=== PATIENT | male | born 1960 | race Caucasian/White ===

== ENCOUNTER 2018-12-03 08:31 | Emergency (ER) | payer MEDICAID ==
--- NOTE | 2018-12-03 08:56 | EDM.PDOC ---
ED HPI GENERAL MEDICAL PROBLEM - General Chief Complaint: Back Pain or Injury Stated Complaint: BACK PAIN Time Seen by Provider: 12/03/18 08:44 Source of Information: Reports: Patient History Limitations: Reports: No Limitations - History of Present Illness INITIAL COMMENTS - FREE TEXT/NARRATIVE: History of present illness: []Patient has chronic back pain flareup the past 3 days radiating down his right leg. He denies any incontinence or inability to walk. Review of systems: As per history of present illness and below otherwise all systems reviewed and negative. Past medical history: As per history of present illness and as reviewed below otherwise noncontributory. Surgical history: As per history of present illness and as reviewed below otherwise noncontributory. Social history: No reported history of drug or alcohol abuse. Family history: As per history of present illness and as reviewed below otherwise noncontributory. Physical exam: General: Well developed, well nourished in NAD HEENT: Atraumatic, normocephalic, pupils reactive, negative for conjunctival pallor or scleral icterus, mucous membranes moist, throat clear, neck supple, nontender, trachea midline. Lungs: Clear to auscultation, breath sounds equal bilaterally, chest nontender. Heart: S1S2, regular, negative for clicks, rubs, or JVD. Abdomen: NABS, Soft, nondistended, nontender. Negative for masses or hepatosplenomegaly. Negative for costovertebral tenderness. Pelvis: Stable nontender. Genitourinary: Deferred. Rectal: Deferred. Extremities: Atraumatic, negative for cords or calf pain. Neurovascular unremarkable. Neuro: Awake, alert, oriented. Cranial nerves II through XII unremarkable. Cerebellum unremarkable. Motor and sensory unremarkable throughout. Exam nonfocal. Skin:warm and dry Diagnostics: None Therapeutics: Toradol IM, Flexeril ED Course: Unremarkable Impression: Chronic low back pain with acute exacerbation right-sided sciatica Prescriptions: Diclofenac, Flexeril, Medrol Dosepak Plan: Take meds as directed, follow up with your primary care physician, return to ER if symptoms worsen or change. Definitive disposition and diagnosis as appropriate pending reevaluation and review of above. Low bilateral back Pain Score (Numeric/FACES): 10 - Related Data Allergies Allergy/AdvReac Type Severity Reaction Status Date / Time No Known Allergies Allergy Verified 12/03/18 08:43 Home Meds: Home Meds Insulin Glargine,Hum.Rec.Anlog [Lantus Solostar] 10 unit SQ BID 07/10/16 [ History] Lisinopril 1 tab PO DAILY 07/10/16 [History] Pioglitazone [Actos] 1 tab PO DAILY 07/10/16 [History] glipiZIDE [Glucotrol XL] 1 tab PO DAILY 07/10/16 [History] metFORMIN HCl [Metformin HCl] 1 tab PO BID 07/10/16 [History] Cyclobenzaprine [Flexeril] 10 mg PO BID PRN #12 tab 12/03/18 [Rx] Diclofenac Sodium [Voltaren] 75 mg PO BIDMEALS PRN #20 tab.cr 12/03/18 [Rx] methylPREDNISolone [Medrol] 4 mg PO ASDIRECTED #1 dosepk 12/03/18 [Rx] Past Medical History HEENT History: Reports: Hard of Hearing Other HEENT History: Hears best on Left Cardiovascular History: Reports: Hypertension Other Respiratory History: REports long history of tobacco use, Chewing tobacco currently 1 can per day and about 2 cigarettes per day Gastrointestinal History: Reports: GERD, Hepatitis Other Gastrointestinal History: Heartburn/GERD, Positive Hepatitis C (Heroin addict in recovery 16 years) Other Neuro History: "Some Headaches" Endocrine/Metabolic History: Reports: Diabetes, Type II, Obesity/BMI 30+ - Infectious Disease History Infectious Disease History: Reports: None - Past Surgical History Musculoskeletal Surgical History: Reports: Shoulder Surgery, Other (See Below) Social & Family History - Family History Family Medical History: Noncontributory - Tobacco Use Smoking Status *Q: Current Every Day Smoker Years of Tobacco use: 19 Packs/Tins Daily: 1 - Caffeine Use Caffeine Use: Reports: Coffee, Soda - Recreational Drug Use Recreational Drug Use: No ED ROS GENERAL - Review of Systems Review Of Systems: ROS reveals no pertinent complaints other than HPI. ED EXAM,LOWER BACK PAIN/INJURY - Physical Exam Exam: See Below (See history of present illness) Course - Vital Signs Last Recorded V/S: Last Vital Signs Temp 97.0 F 12/03/18 08:44 Pulse 73 12/03/18 09:47 Resp 18 12/03/18 09:47 BP 182/110 H 12/03/18 09:47 Pulse Ox 96 12/03/18 09:47 - Orders/Labs/Meds Orders: Active Orders 24 hr Category Date Time Status Blood Glucose Check, Bedside [RC] ONETIME Care 12/03/18 09:19 Active Meds: Medications Discontinued Medications Generic Name Dose Route Start Last Admin Trade Name Simbaq PRN Reason Stop Dose Admin Cyclobenzaprine HCl 10 mg 12/03/18 09:19 12/03/18 09:25 Flexeril PO 12/03/18 09:20 10 mg ONETIME ONE Administration Ketorolac Tromethamine 60 mg 12/03/18 09:19 12/03/18 09:24 Toradol IM 12/03/18 09:20 60 mg ONETIME ONE Administration Departure - Departure Time of Disposition: 08:55 Disposition: Home, Self-Care 01 Condition: Good Clinical Impression: Chronic low back pain with right-sided sciatica Qualifiers: Back pain laterality: right Qualified Code(s): M54.41 - Lumbago with sciatica, right side - Discharge Information *PRESCRIPTION DRUG MONITORING PROGRAM REVIEWED*: No *COPY OF PRESCRIPTION DRUG MONITORING REPORT IN PATIENT HAKEEM: No Prescriptions: Cyclobenzaprine [Flexeril] 10 mg PO BID PRN #12 tab PRN Reason: Pain Diclofenac Sodium [Voltaren] 75 mg PO BIDMEALS PRN #20 tab.cr PRN Reason: Pain methylPREDNISolone [Medrol] 4 mg PO ASDIRECTED #1 dosepk Instructions: Sciatica, Back Pain, Adult, [id number] Referrals: PCP,None [Primary Care Provider] - Forms: ED Department Discharge - My Orders Last 24 Hours: My Active Orders 12/03/18 09:19 Blood Glucose Check, Bedside [RC] ONETIME - Assessment/Plan Last 24 Hours: My Active Orders 12/03/18 09:19 Blood Glucose Check, Bedside [RC] ONETIME
[2018-12-03] MEDS ORDERED: Ketorolac 60 MG/2 ML SDV IM ONE (09:19)
[2018-12-03] MEDS ORDERED: Cyclobenzaprine 10 MG Tab PO ONE (09:19)
[2018-12-03 10:15] VITALS: BP 182/110
== END 2018-12-03 09:47 | disposition home or self-care (01) ==
LOC: MW.ED 08:31
DX: M54.41 Lumbago with sciatica, right side (principal); F17.210 Nicotine dependence, cigarettes, uncomplicated; I10 Essential (primary) hypertension; Z79.4 Long term (current) use of insulin
CPT/HCPCS: 96372; 99283; A9270; J1885

== ENCOUNTER 2019-02-04 13:39 | Emergency (ER) | payer MEDICAID ==
[2019-02-04 14:00] VITALS: BP 136/100
[2019-02-04] MEDS ORDERED: Ketorolac 60 MG/2 ML SDV IM ONE (14:17)
--- NOTE | 2019-02-04 14:28 | EDM.PDOC ---
ED HPI GENERAL MEDICAL PROBLEM - General Chief Complaint: Back Pain or Injury Stated Complaint: BACK PAIN Time Seen by Provider: 02/04/19 13:46 Source of Information: Reports: Patient History Limitations: Reports: No Limitations - History of Present Illness INITIAL COMMENTS - FREE TEXT/NARRATIVE: HISTORY AND PHYSICAL: History of present illness: Patient is a 58-year-old male presents to the ED today with concern of low back pain 3 days. Patient states he does have a history of chronic low back pain and sees his primary care provider for this under usual circumstances. Patient states he had old injury many years ago which has contributed to his back pain. Patient is currently experiencing shooting down the right leg on the outside and states that this is usual for his low back pain. Patient rates his pain a 9 out of 10 and states that usually it is about a 4 out of 10. Patient states he has not taken anything for his symptoms. Patient denies any new injury or trauma to the area. Patient denies loss of bowel or bladder function or saddle anesthesia. Patient denies fever, chills, chest pain, shortness of breath, or cough. Denies headache, neck stiff ness, change in vision, syncope, or near syncope. Denies nausea, vomiting, abdominal pain, diarrhea, constipation, or dysuria. Has not noted any blood in urine or stool. Patient has been eating and drinking appropriately. Patient has a history of hypertension, type 2 diabetes, and hepatitis C. Review of systems: As per history of present illness and below otherwise all systems reviewed and negative. Past medical history: As per history of present illness and as reviewed below otherwise noncontributory. Surgical history: As per history of present illness and as reviewed below otherwise noncontributory. Social history: See social history for further information Family history: As per history of present illness and as reviewed below otherwise noncontributory. Physical exam: General: Patient is alert, oriented, and in no acute distress. Patient sitting comfortably on exam table. HEENT: Atraumatic, normocephalic, pupils equal and reactive bilaterally, negative for conjunctival pallor or scleral icterus, mucous membranes moist, TMs normal bilaterally, throat clear, neck supple, nontender, trachea midline. No drooling or trismus noted. No meningeal signs. No hot potato voice noted. Lungs: Clear to auscultation, breath sounds equal bilaterally, chest nontender. Heart: S1S2, regular rate and rhythm without overt murmur Abdomen: Soft, nondistended, nontender. Negative for masses or hepatosplenomegaly. Negative for costovertebral tenderness. Pelvis: Stable nontender. Genitourinary: Deferred. Rectal: Rectal tone intact. Skin: Intact, warm, dry. No lesions or rashes noted. Extremities/musculoskeletal: Negative for cords or calf pain. Neurovascular unremarkable. Negative pain to palpation of the complete spine and spinous process. Patient does have moderate to severe pain to palpation of the paraspinous muscles surrounding the lumbar spine on bilateral sides. Patient does vocalize a shooting sensation down the right leg with palpation of the paraspinous muscles. Limited range of motion of the lumbar spine due to pain. Patient has full range of motion of the cervical spine. Patient has full range of motion/strength of bilateral extremities. Neuro: Awake, alert, oriented. Cranial nerves II through XII unremarkable. Cerebellum unremarkable. Motor and sensory unremarkable throughout. Exam nonfocal. Notes: Dr. Gutierrez was verbally involved in patients care. Discussed the importance for follow-up with a primary care provider. Voices understanding and is agreeable to plan of care. Denies any further questions or concerns at this time. Diagnostics: Lumbar x-ray, UA Therapeutics: Toradol, Norflex Prescription: Diclofenac, Flexeril Impression: Acute on chronic low back pain Plan: 1. Rest, ice the affected area. You can apply ice or heat 15 minutes on, 15 minutes off. 2.Take medications as prescribed. You can also use Tylenol as needed for pain and discomfort. 3. Follow up with your primary care provider as discussed. Return to the ED as needed and as discussed. Definitive disposition and diagnosis as appropriate pending reevaluation and review of above. back Pain Score (Numeric/FACES): 10 - Related Data Allergies Allergy/AdvReac Type Severity Reaction Status Date / Time No Known Allergies Allergy Verified 12/03/18 08:43 Home Meds: Home Meds Lisinopril 1 tab PO DAILY 07/10/16 [History] Pioglitazone [Actos] 1 tab PO DAILY 07/10/16 [History] glipiZIDE [Glucotrol XL] 1 tab PO DAILY 07/10/16 [History] metFORMIN HCl [Metformin HCl] 1 tab PO BID 07/10/16 [History] Cyclobenzaprine [Flexeril] 10 mg PO BID PRN #10 tab 02/04/19 [Rx] Diclofenac Sodium [Voltaren] 75 mg PO BIDMEALS PRN #10 tab.cr 02/04/19 [Rx] Lisdexamfetamine Dimesylate [Vyvanse] 60 mg PO DAILY 02/04/19 [History] Sertraline [Zoloft] 100 mg PO DAILY 02/04/19 [History] glipiZIDE [Glipizide ER] 10 mg PO DAILY 02/04/19 [History] Past Medical History HEENT History: Reports: Hard of Hearing Other HEENT History: Hears best on Left Cardiovascular History: Reports: Hypertension Other Respiratory History: REports long history of tobacco use, Chewing tobacco currently 1 can per day and about 2 cigarettes per day Gastrointestinal History: Reports: GERD, Hepatitis Other Gastrointestinal History: Heartburn/GERD, Positive Hepatitis C (Heroin addict in recovery 16 years) Other Neuro History: "Some Headaches" Endocrine/Metabolic History: Reports: Diabetes, Type II, Obesity/BMI 30+ - Infectious Disease History Infectious Disease History: Reports: None - Past Surgical History Musculoskeletal Surgical History: Reports: Knee Replacement, Shoulder Surgery, Other (See Below) Social & Family History - Family History Family Medical History: Noncontributory - Tobacco Use Smoking Status *Q: Current Every Day Smoker Years of Tobacco use: 40 Packs/Tins Daily: 1 - Caffeine Use Caffeine Use: Reports: Coffee, Soda - Recreational Drug Use Recreational Drug Use: No ED ROS GENERAL - Review of Systems Review Of Systems: ROS reveals no pertinent complaints other than HPI. ED EXAM,LOWER BACK PAIN/INJURY - Physical Exam Exam: See Below (See dictation) Course - Vital Signs Last Recorded V/S: Last Vital Signs Temp 36.6 C 02/04/19 13:59 Pulse 90 02/04/19 13:59 Resp 18 02/04/19 13:59 BP 136/100 H 02/04/19 13:59 Pulse Ox 95 02/04/19 13:59 - Orders/Labs/Meds Orders: Active Orders 24 hr Category Date Time Status Lumbar Spine 2 or 3V [CR] Stat Exams 02/04/19 14:17 Taken Labs: Laboratory Tests 02/04/19 Range/Units 14:54 Urine Color YELLOW Urine Appearance CLEAR Urine pH 6.0 (5.0-8.0) Ur Specific [place] 1.025 (1.001-1.035) Urine Protein NEGATIVE (NEGATIVE) mg/dL Urine Glucose (UA) NEGATIVE (NEGATIVE) mg/dL Urine Ketones NEGATIVE (NEGATIVE) mg/dL Urine Occult Blood NEGATIVE (NEGATIVE) Urine Nitrite NEGATIVE (NEGATIVE) Urine Bilirubin NEGATIVE (NEGATIVE) Urine Urobilinogen 0.2 (<2.0) EU/dL Ur Leukocyte Esterase NEGATIVE (NEGATIVE) Meds: Medications Discontinued Medications Generic Name Dose Route Start Last Admin Trade Name Freq PRN Reason Stop Dose Admin Ketorolac Tromethamine 60 mg 02/04/19 14:17 02/04/19 14:49 Toradol IM 02/04/19 14:18 60 mg ONETIME ONE Administration Orphenadrine Citrate 60 mg 02/04/19 14:17 02/04/19 14:50 Norflex IM 02/04/19 14:18 60 mg NOW STA Administration Departure - Departure Time of Disposition: 16:59 Disposition: Home, Self-Care 01 Clinical Impression: Acute exacerbation of chronic low back pain - Discharge Information Prescriptions: Cyclobenzaprine [Flexeril] 10 mg PO BID PRN #10 tab PRN Reason: Spasms Diclofenac Sodium [Voltaren] 75 mg PO BIDMEALS PRN #10 tab.cr PRN Reason: Pain Referrals: PCP,None [Primary Care Provider] - Forms: ED Department Discharge Additional Instructions: The following information is given to patients seen in the emergency department who are being discharged to home. This information is to outline your options for follow-up care. We provide all patients seen in our emergency department with a follow-up referral. The need for follow-up, as well as the timing and circumstances, are variable depending upon the specifics of your emergency department visit. If you don't have a primary care physician on staff, we will provide you with a referral. We always advise you to contact your personal physician following an emergency department visit to inform them of the circumstance of the visit and for follow-up with them and/or the need for any referrals to a consulting specialist. The emergency department will also refer you to a specialist when appropriate. This referral assures that you have the opportunity for follow-up care with a specialist. All of these measure are taken in an effort to provide you with optimal care, which includes your follow-up. Under all circumstances we always encourage you to contact your private physician who remains a resource for coordinating your care. When calling for follow-up care, please make the office aware that this follow-up is from your recent emergency room visit. If for any reason you are refused follow-up, please contact the [facility] Emergency Department at and asked to speak to the emergency department charge nurse. [facility] [address] [place] [id number] [facility] [address] [place] [id number] 1. Rest, ice the affected area. You can apply ice or heat 15 minutes on, 15 minutes off. 2. Take medications as prescribed. You can also use Tylenol as needed for pain and discomfort. 3. Follow up with your primary care provider as discussed. Return to the ED as needed and as discussed. - My Orders Last 24 Hours: My Active Orders 02/04/19 14:17 Lumbar Spine 2 or 3V [CR] Stat - Assessment/Plan Last 24 Hours: My Active Orders 02/04/19 14:17 Lumbar Spine 2 or 3V [CR] Stat
--- NOTE | 2019-02-04 17:20 | CR ---
INDICATION: Pain TECHNIQUE: Lumbar spine 3 view. COMPARISON: None FINDINGS: Bones: Mild scoliosis with grade 1 anterior listhesis of L5 over S1. Moderate anterior wedge compression deformity L1 vertebral body. Joints: Multilevel degenerative changes.. Soft tissues: Small round radiopaque body projects anterior to the distal sacrum. IMPRESSION: Multilevel degenerative changes with mild anterior wedge compression deformity L1 vertebral body. Grade 1 anterolisthesis L5 over S1. Dictated by Camron Weber MD @ Feb 04 2019 5:18PM Signed by Dr. Camron Weber @ Feb 04 2019 5:18PM
== END 2019-02-04 17:27 | disposition home or self-care (01) ==
LOC: MW.ED 13:39
DX: M54.5 Low back pain (principal); G89.29 Other chronic pain; I10 Essential (primary) hypertension; E11.9 Type 2 diabetes mellitus without complications; K21.9 Gastro-esophageal reflux disease without esophagitis; F17.210 Nicotine dependence, cigarettes, uncomplicated; Z79.84 Long term (current) use of oral hypoglycemic drugs; Z79.899 Other long term (current) drug therapy
CPT/HCPCS: 72100; 81003; 96372; 99283; J1885; J2360